=== PATIENT | female | born 1995 | race American Indian/Alaskan Native ===

== ENCOUNTER 2016-12-22 16:48 | Inpatient (IN) | payer MEDICAID ==
[~2016-12-22 16:48] MED LIST: NEO SYNEPHRINE/NS Syringe(OR USE) IV ONE
[2016-12-22] MEDS ORDERED: LACTATED RINGERS 1,000 ML IV ONE (17:18)
[2016-12-22] MEDS ORDERED: SUBLIMAZE IV ONE (17:19)
[2016-12-22] MEDS ORDERED: ePHEDrine SULFATE IV PRN ×2 (17:19→20:08)
[2016-12-22 17:39] LABS: Basophils % (Auto) 0.4 % (0.0-1.8); Eosinophils % (Auto) 1.4 % (0.0-4.3); Hematocrit 39.8 % (30.3-42.9); Hemoglobin 12.9 gm/dl (10.1-14.3); Mean Corpuscular HGB Conc 32 % (30-34); Mean Corpuscular Hemoglobin 27 pg (28-32); Mean Corpuscular Volume 82 fl (79-97); Platelet Count 194 K/mm3 (140-440); Red Blood Count 4.83 M/mm3 (3.65-5.03); Red Cell Distribution Width 13.6 % (13.2-15.2); White Blood Count 13.4 K/mm3 (4.5-11.0)
[2016-12-22] MEDS ORDERED: LACTATED RINGERS 1,000 ML IV SCH ×2 (18:00→21:00)
[2016-12-22] MEDS ORDERED: POLYCILLIN/NS 2 GM/100 ML 2 GM/100 ML BAG IV ONE (18:00)
[2016-12-22 18:32] LABS: Urine Drugs of Abuse Note Disclamer
[2016-12-22 19:13] LABS: HIV-1 Antigen p24 Non React (Non React); HIVR-1/2 Ab Non React (Non React)
[2016-12-22 19:53] LABS: Alanine Aminotransferase 11 units/L (7-56); Lactate Dehydrogenase 185 units/L (91-180)
[2016-12-22 19:58] LABS: Hemoglobin 12.7 gm/dl (10.1-14.3); Mean Corpuscular HGB Conc 32 % (30-34); Mean Corpuscular Hemoglobin 26 pg (28-32); Mean Corpuscular Volume 82 fl (79-97); Platelet Count 199 K/mm3 (140-440); Red Blood Count 4.87 M/mm3 (3.65-5.03); Red Cell Distribution Width 13.6 % (13.2-15.2); White Blood Count 13.8 K/mm3 (4.5-11.0)
[2016-12-22] MEDS ORDERED: POLYCILLIN/NS 1 GM/50 ML 1 GM/50 ML BAG IV SCH (20:00)
[2016-12-22] MEDS ORDERED: NARCAN 2 MG/2 ML IV PRN (20:08)
--- NOTE | 2016-12-22 20:08 | Anesthesia Consultation ---
Anesthesia Consult and Med Hx Date of service: 12/22/16 - Airway Anesthetic Teeth Evaluation: Good ROM Head & Neck: Adequate Mental/Hyoid Distance: Adequate Mallampati Class: Class II Intubation Access Assessment: Probably Good - Pulmonary Exam CTA: Yes - Cardiac Exam Cardiac Exam: RRR - Pre-Operative Health Status ASA Pre-Surgery Classification: ASA2 Proposed Anesthetic Plan: Epidural - Pulmonary Hx Asthma: Yes (last attack 2014; used inhaler) COPD: No Hx Pneumonia: No - Cardiovascular System Hx Hypertension: No - Central Nervous System Hx Seizures: No Hx Psychiatric Problems: Yes (bipolar; ADHD) - Endocrine Hx Renal Disease: No Hx End Stage Renal Disease: No Hx Hypothyroidism: No Hx Hyperthyroidism: No - Hematic Hx Anemia: No Hx Sickle Cell Disease: No - Other Systems Hx Alcohol Use: No
[2016-12-22] MEDS ORDERED: REGLAN ONE (20:57)
[2016-12-22] MEDS ORDERED: PEPCID IV ONE ×2 (20:57→21:00)
[2016-12-22] MEDS ORDERED: BICITRA ONE (20:57)
[2016-12-22] MEDS ORDERED: fentaNYL-BUPIV 2 MCG/ML-0.125% 200 MCG/100 ML BAG EPIDURAL SCH (21:00)
[2016-12-22] MEDS ORDERED: BICITRA PO ONE (21:00)
[2016-12-22] MEDS ORDERED: PITOCin/NS 20 UNIT/1000ML DRIP 20,000 MILLIUNITS/1,000 ML BAG IV ONE (21:00)
[2016-12-22] MEDS ORDERED: REGLAN IV ONE (21:00)
[2016-12-22] MEDS ORDERED: PITOCin/NS 20 UNIT/1000ML DRIP 20 UNITS/1,000 ML BAG IV SCH ×2 (21:00→23:00)
[2016-12-22] MEDS ORDERED: ANCEF/STERILE WATER 2 GM/20 ML 2 GM/20 ML SYRINGE IV NR (21:00)
[2016-12-22] MEDS ORDERED: NACL 0.9% IR ONE (21:15)
[2016-12-22] MEDS ORDERED: WATER FOR IRRIG STERILE IR ONE (21:15)
[2016-12-22] MEDS ORDERED: XYLOCAINE MPF 2% ONE (21:19)
[2016-12-22] MEDS ORDERED: DIPRIVAN 10 MG/ML IV ONE (21:28)
[2016-12-22] MEDS ORDERED: ZEMURON IV ONE (21:43)
[2016-12-22] MEDS ORDERED: VERSED ONE (21:43)
[2016-12-22] MEDS ORDERED: DILAUDID ONE ×2 (21:47→23:00)
[2016-12-22] MEDS ORDERED: ZOFRAN ONE (22:01)
[2016-12-22] MEDS ORDERED: TORADOL ONE (22:28)
[2016-12-22] MEDS ORDERED: NARCAN 0.4 MG/1 ML IV PRN (22:42)
[2016-12-22] MEDS ORDERED: MILK OF MAGNESIA PO PRN (22:42)
[2016-12-22] MEDS ORDERED: TUCKS PAD TP PRN (22:42)
[2016-12-22] MEDS ORDERED: MYLICON PO PRN (22:42)
[2016-12-22] MEDS ORDERED: ANUCORT-HC PR PRN (22:42)
[2016-12-22] MEDS ORDERED: ZOFRAN IV PRN (22:42)
[2016-12-22] MEDS ORDERED: PERCOCET 5/325 PO PRN (22:42)
[2016-12-22] MEDS ORDERED: LANSINOH TP PRN (22:42)
[2016-12-22] MEDS ORDERED: PHENERGAN PR PRN (22:42)
[2016-12-22] MEDS ORDERED: SENOKOT PO PRN (22:42)
[2016-12-22] MEDS ORDERED: TORADOL IV PRN (22:42)
[2016-12-22 22:47] LABS: ISTAT Base Excess -12; ISTAT HCO3 18.7; ISTAT PCO2 71.6 (35-45); ISTAT PH 7.026 (7.35-7.45); ISTAT PO2 19 (80-105); ISTAT SO2 15; ISTAT TCO2 21
[2016-12-22 22:47] LABS: ISTAT Base Excess -7; ISTAT HCO3 20.2; ISTAT PCO2 43.5 (35-45); ISTAT PH 7.275 (7.35-7.45); ISTAT PO2 40 (80-105); ISTAT SO2 68; ISTAT TCO2 21
--- NOTE | 2016-12-22 22:55 | History and Physical Report ---
History of Present Illness Date of examination: 12/22/16 Date of admission: 12/22/16 17:12 Chief complaint: contractions History of present illness: This is a 21 yo at 38 weeks here as a walk in as a patient of [employer]. She states that she went to [place] on previous day and noted to be 1cm. She presented to triage and noted to be 3/100/-1. She was admitted for labor. Past History Past Medical History: no pertinent history, asthma, other (Bipolar and ADHD) Past Surgical History: no surgical history, other (2004 umbilical hernia repair ) CUT OFF SAW OPERATOR PIPE BLANKS History: denies: abnormal PAP smear Family/Genetic History: none Social history: single. denies: smoking, alcohol abuse, prescription drug abuse - Obstetrical History Expected Date of Delivery: 01/01/17 Actual Gestation: 38 Week(s) 4 Day(s) : 1 Para: 0 Hx # Term Pregnancies: 0 Number of Pregnancies: 0 Spontaneous Abortions: 0 Induced : 0 Number of Living Children: 0 Medications and Allergies Allergies Allergy/AdvReac Type Severity Reaction Status Date / Time No Known Allergies Allergy Verified 12/22/16 17:14 Home Medications Medication Instructions Recorded Confirmed Last Taken Type Vit-Fe Fumar-FA [ 1 tab PO QDAY 12/22/16 12/22/16 12/22/16 09: 00 History Vitamin] 1 Active Meds: Active Medications Lactated Ringer's (Lactated Ringers) 1,000 mls @ 125 mls/hr IV DIRECT RO Ampicillin Sodium (Polycillin/Ns 1 Gm/50 Ml) 1 gm in 50 mls @ 100 mls/hr IV Q4H RO PRN Reason: Protocol Last Admin: 12/22/16 20:40 Dose: 100 mls/hr Fentanyl/Bupivacaine/Sodium Chlor (Fentanyl-Bupiv 2 Mcg/Ml-0.125%) 200 mcg in 100 mls @ 12 mls/hr EPIDURAL TITR RO PRN Reason: Protocol Last Admin: 12/22/16 20:39 Dose: 12 mls/hr Review of Systems All systems: negative Genitourinary: contractions - Vital Signs Vital signs: Vital Signs Temp Pulse Resp BP Pulse Ox 97.6 F 78 18 163/98 100 12/22/16 17:21 12/22/16 17:21 12/22/16 17:21 12/22/16 17:21 12/22/16 17:21 Temp Pulse Resp BP Pulse Ox 97.6 F 76 18 143/75 99 12/22/16 17:21 12/22/16 21:11 12/22/16 18:13 12/22/16 21:10 12/22/16 21:11 - Physical Exam Breasts: Positive: deferred Cardiovascular: Regular rate, Normal S1 Lungs: Positive: Clear to auscultation, Normal air movement Abdomen: Positive: normal appearance, soft, normal bowel sounds. Negative: distention, tenderness, guarding Genitourinary (Female): Positive: normal external genitalia, normal perenium Vulva: both: normal Uterus: Positive: normal size Anus/Rectum: Positive: normal perianal skin Extremities: Positive: normal Deep Tendon Reflex Grade: Normal +2 - Obstetrical FHR: category 1 Uterine Contraction Monitor Mode: External Cervical Dilatation: 3 Cervical Effacement Percentage: 100 station: -1 Uterine Contraction Pattern: Regular Uterine Tone Measurement Phase: Contraction Uterine Contraction Intensity: Strong/Firm Results Result Diagrams: 12/22/16 17:30 12/22/16 17:20 Abnormal lab results 12/22/16 12/22/16 12/22/16 Range/Units 17:20 17:20 17:30 WBC 13.8 H 13.4 H (4.5-11.0) K/mm3 MCH 26 L 27 L (28-32) pg [place] # 0.9 H (0.0-0.8) K/mm3 Seg Neutrophils # 9.0 H (1.8-7.7) K/mm3 POC ABG pH (7.35-7.45) POC ABG pCO2 (35-45) POC ABG pO2 (80-105) Creatinine 0.5 L (0.7-1.2) mg/dL Lactate Dehydrogenase 185 H (91-180) units/L 12/22/16 12/22/16 Range/Units 22:40 22:44 WBC (4.5-11.0) K/mm3 MCH (28-32) pg [place] # (0.0-0.8) K/mm3 Seg Neutrophils # (1.8-7.7) K/mm3 POC ABG pH 7.275 L 7.026 L (7.35-7.45) POC ABG pCO2 71.6 H (35-45) POC ABG pO2 40 L 19 L (80-105) Creatinine (0.7-1.2) mg/dL Lactate Dehydrogenase (91-180) units/L All other labs normal. Ultrasound: report reviewed Assessment and Plan A/P IUP 38 weeks, walk in US for complete labs, IVF, pain control and offer epidural attempt to obtain records close monitor expect vaginal delivery
[2016-12-22] MEDS ORDERED: D5LR 1,000 ML IV SCH (23:00)
[2016-12-22] MEDS ORDERED: SODIUM CHLORIDE FLUSH SYRINGE 10 ML IV PRN (23:00)
--- NOTE | 2016-12-22 23:01 | Post Anesthesia Evaluation ---
- Post Anesthesia Evaluation Patient Participated: Yes Airway Patent: Yes Stable Respiratory Function: Yes Nausea/Vomiting: No Temp > 96.8F: Yes Pain Manageable: Yes Adequeate Hydration: Yes Anesthesia Complications: No Block Receding Appropriately: Yes Patient on Ventilator: No
--- NOTE | 2016-12-22 23:11 | Event Note ---
Date: 12/22/16 Late entry I was called by nurse that strip had decreased variability and decels. I poceeded in and evaluated patient. I arom with clear fluid and noted to be 8/100 /-1 FSE applied and note to be in 60s and proceeded for a stat c/sec. We discussed r/b/a of c/sec which included bleeding infection, damage to pelvic and non pelvic organs risk of blood clots, pain and and injury to fetus. Patient agrees to proceed for stat c/sec for NRFHT
--- NOTE | 2016-12-22 23:13 | Procedure Note ---
OB Delivery Note - Delivery Date of Delivery: 12/22/16 Surgeon: SU MONTGOMERY Estimated blood loss: other (600cc) - Section Preop diagnosis: nonreassuring FHR tracing Postop diagnosis: same section procedure: section, primary low transverse Disposition: PACU Complications: none Narrative: see op note - A at 1 minute: 6 at 5 minutes: 9 Infant Gender: Male (weight 6 pounds and 1.9 oz)
--- NOTE | 2016-12-22 23:35 | Operative Report ---
Operative Report Operative Report: DATE OF OPERATION: 12/22/16 PREOPERATIVE DIAGNOSES: 1. Intrauterine gestation at 38 weeks, in active labor 2. NRFHT with minimal variablitity with decels 3. Small for gestational age POSTOPERATIVE DIAGNOSES: 1. Intrauterine gestation at 38 weeks, in active labor 2. NRFHT with minimal variablity and decles 3. Nuchal cord , body cord 4. Asynclytic OPERATION PERFORMED: Primary low transverse section. SURGEON: Leslie Rayo MD ANESTHESIA: Epidural converted to General COMPLICATIONS: None. ESTIMATED BLOOD LOSS: 600 mL. DRAINS: Acuna catheter to the bladder. SPECIMENS TO PATHOLOGY: Cord blood for routine testing. Cord Gas OPERATIVE FINDINGS: A viable male with Apgars of 6 and 9 and birthweight of 6 pounds 1.9 ounces was delivered from a cephalic presentation, face presentation, asynclytic . There was marked caput and molding present on the head. Cord pH was 7.06. The cord contained 3 vessels. There was normal placenta. The amniotic fluid was clear. The uterus, fallopian tubes and ovaries were normal. DESCRIPTION OF OPERATION: The patient was brought to the operating suite in stable condition with epidural anesthesia on board and an indwelling catheter in place in the bladder. The patient was placed supine on the operating room table and rolled to her left side with a wedge. The abdomen was prepped and draped in standard fashion for section. After testing with forceps to assure an adequate anesthetic level, the surgery was commenced. We had counseled the patient extensively regarding the risks of the surgery including but not limited to stroke, embolus, phlebitis, pain, infection, hemorrhage, as well as injury to the and the internal organs such as the bowel, bladder, blood vessels, nerves, kidneys, ureters and pelvic organs. The patient was aware of the postoperative morbidity issues and recovery timeframes. The patient was aware she can form adhesions, which can result in obstruction of loop of bowel or ureter or chronic pain. She was aware that should she have hemorrhage and require blood transfusion, there was a small chance for exposure to hepatitis or HIV disease. With the scalpel, a Pfannenstiel skin incision was made. Dissection was carried down sharply through the subcutaneous tissues and fascia in a transverse plane with the scalpel, electrocautery and curved Jordan scissors.At this time patient begaan to move carlton pull the electrodes off and Dr. Adams had to convert to General. After General after a few minutes I was signaled to continue surgery. The fascia was sharply freed up superiorly and inferiorly from the underlying rectus muscles, which were bluntly and sharply divided. The peritoneum was entered carefully in a clear space with a curved hemostat. The peritoneal incision was then extended vertically with Metzenbaum scissors. A retractor and bladder blade were placed. A bladder flap was created by incising transversely through the peritoneum and vesicouterine fold and then bluntly dissecting the bladder distally. With the scalpel, a low transverse hysterotomy was commenced. The serosa and myometrium were scored with the scalpel. The uterine cavity was actually entered bluntly with a curved hemostat. The uterine incision was then extended laterally with the die equipment operator's fingers. An intrauterine hand was placed and the head of the was brought up out of the pelvis into the uterine incision with assistance of hand from below. Difficult delivery and incision on skin was made and multiple incision to musvcle to release the face and right arm presented and was succesful at delivering baby. With fundal pressure, he was delivered . The nasopharynx and oropharynx were suctioned. The cord was doubly clamped and transected. The was then handed off to the nursery personnel. Apgars were good at 6 and 9. A cord pH was obtained. Further cord blood was collected for routine testing. Intravenous Pitocin and antibiotics were administered. The placenta was manually removed. The uterine cavity was then curetted with a dry sponge and freed of the remaining membranes. The edges of the uterine incision were grasped with Healy clamps. With the massage and the Pitocin , the uterus began to firm up normally. The uterine incision was then closed in 2 layers of 0 Vicryl sutures. The first suture was placed to the endometrium and myometrium. The second suture was placed through the endopelvic fascia and also reincorporated the bladder flap peritoneum. Peritoneal lavage was then performed. The pelvis and gutters were irrigated and suctioned and cleared of all blood and clots and amniotic fluid. The uterine incision was reinspected to assure hemostasis. thissel and surgicell placed with good hemostasis. The uterus, tubes and ovaries were inspected and were normal. Was alerted to heme in Acuna, therefore milk insufflated in acuna with no visualization in operating field.. Once we were satisfied with the hemostasis, attention was turned to closure of the abdominal incision. The peritoneum, muscles and fascia were closed in layers using 0-Vicryl sutures. The subcutaneous tissue was closed with 3-0 plain sutures. The skin was closed with riley. The patient was moved to the recovery room in stable condition with the Acuna catheter draining clear urine. Instruments, sponge and needle counts were reported as correct. Estimated blood loss was 600 mL. There were no complications.
[2016-12-22] MEDS: NORCO 5/325 PO PRN (23:59)
[2016-12-23] MEDS ORDERED: MAGNESIUM SULFATE 4GM/100ML 4 GM/100 ML BAG IV ONE ×2 (00:16→00:22)
[2016-12-23] MEDS ORDERED: MAGNESIUM SULFATE 40GM/1000ML 40 GM/1,000 ML BAG IV SCH (01:00)
[2016-12-23 02:26] LABS: Bacteria,Urine 1+ /HPF (Negative); Bilirubin,Urine NEG (Negative); Blood,Urine LG (Negative); Ketones,Urine NEG (Negative); Leukocyte Esterase,Urine TR (Negative); Mucus,Urine 1+ /HPF; Nitrite,Urine NEG (Negative); RBC,Urine > 182.0 /HPF (0.0-6.0); Urobilinogen,Urine < 2.0 mg/dL (<2.0)
[2016-12-23 03:47] LABS: Basophils % (Auto) 0.3 % (0.0-1.8); Hemoglobin 9.4 gm/dl (10.1-14.3); Mean Corpuscular HGB Conc 31 % (30-34); Mean Corpuscular Hemoglobin 26 pg (28-32); Mean Corpuscular Volume 83 fl (79-97); Platelet Count 213 K/mm3 (140-440); Red Cell Distribution Width 13.8 % (13.2-15.2); White Blood Count 20.1 K/mm3 (4.5-11.0)
[2016-12-23] MEDS ORDERED: LACTATED RINGERS 1,000 ML IV SCH ×2 (04:00)
[2016-12-23] MEDS: ANCEF/NS 1 GM/50 ML 1 GM/50 ML BAG IV SCH ×2 (05:54→14:20)
[2016-12-23] MEDS: TORADOL IV PRN ×2 (07:50→14:20)
--- NOTE | 2016-12-23 08:16 | Progress Note ---
Assessment and Plan A: POD#1 s/p primary section at term, PIH on magnesium sulfate, anemia P: Continue magnesium sulfate x 24 hrs; change pain regimen Subjective - Subjective Date of service: 12/23/16 Principal diagnosis: s/p primary sectiona at term, PIH Interval history: Pt with suboptimal pain control overnight. Patient reports: appetite normal, pain poorly controlled, no voiding normally ( acuna in place ), no flatus, no bowel movement, no ambulating normally (SCDs ) : doing well Objective - Vital Signs Latest vital signs: Vital Signs Temp Pulse Resp BP BP Pulse Ox 12/23/16 06:12 97.7 F 78 20 133/67 12/23/16 04:35 97.7 F 77 20 138/73 12/23/16 02:41 97.3 F L 88 20 136/77 12/23/16 02:04 18 12/23/16 01:15 77 16 137/77 98 12/23/16 01:00 72 15 147/81 97 12/23/16 00:45 72 17 133/84 97 12/23/16 00:30 77 12 140/80 98 12/23/16 00:15 77 12 144/89 99 12/23/16 00:00 76 12 141/85 99 12/22/16 23:59 18 12/22/16 23:45 68 17 148/87 98 12/22/16 23:30 74 17 135/85 98 12/22/16 23:16 88 16 153/84 98 12/22/16 23:10 61 16 138/80 97 12/22/16 22:58 97.8 F 114 H 20 165/98 98 12/22/16 21:11 76 99 12/22/16 21:10 78 143/75 12/22/16 21:06 89 99 12/22/16 21:01 92 H 131/84 100 12/22/16 20:56 90 100 12/22/16 20:51 76 100 12/22/16 20:49 71 139/84 12/22/16 20:46 75 100 12/22/16 20:45 80 166/77 12/22/16 20:41 87 100 12/22/16 20:39 79 129/93 12/22/16 20:36 82 98 12/22/16 20:31 84 99 12/22/16 20:30 94 H 163/111 12/22/16 20:26 78 100 12/22/16 20:21 77 100 12/22/16 20:18 184 H 139/63 12/22/16 20:16 70 99 12/22/16 20:11 58 L 99 12/22/16 20:07 88 166/67 12/22/16 20:06 83 88 12/22/16 20:00 76 100 12/22/16 19:59 63 138/78 12/22/16 19:57 64 139/79 12/22/16 19:55 78 99 12/22/16 19:23 80 L 12/22/16 19:20 79 L 12/22/16 19:17 66 94 12/22/16 19:15 84 99 12/22/16 19:10 66 141/85 99 12/22/16 19:09 83 L 12/22/16 19:04 58 L 89 12/22/16 18:59 62 98 12/22/16 18:54 59 L 98 12/22/16 18:49 54 L 97 12/22/16 18:44 70 98 12/22/16 18:39 67 98 12/22/16 18:34 97 H 100 12/22/16 18:29 62 99 12/22/16 18:24 59 L 98 12/22/16 18:19 59 L 98 12/22/16 18:14 64 99 12/22/16 18:13 18 12/22/16 18:09 61 99 12/22/16 17:58 83 L 12/22/16 17:47 68 87 12/22/16 17:43 58 L 96 12/22/16 17:38 63 99 12/22/16 17:33 76 99 12/22/16 17:28 68 97 12/22/16 17:21 97.6 F 78 18 163/98 100 Intake and Output 12/22/16 12/23/16 12/23/16 22:59 06:59 14:59 Output Total 350 400 Balance -350 -400 Output: Urine 350 400 Uretheral (Acuna) 350 400 Other: Weight 86.636 kg Estimated Blood Loss 600 - Exam Breasts: Present: deferred Cardiovascular: Present: Regular rate Lungs: Present: Clear to auscultation Abdomen: Present: soft, distention (moderate ), abnormal bowel sounds ( hypoactive ) Uterus: Present: fundal height at umbilicus Extremities: Present: normal Incision: Present: dressed - Labs Labs: Abnormal lab results 12/22/16 12/22/16 12/22/16 Range/Units 17:20 17:20 17:30 WBC 13.8 H 13.4 H (4.5-11.0) K/mm3 RBC (3.65-5.03) M/mm3 Hgb (10.1-14.3) gm/dl Hct (30.3-42.9) % MCH 26 L 27 L (28-32) pg Lymph % (Auto) (13.4-35.0) % [place] # 0.9 H (0.0-0.8) K/mm3 Seg Neutrophils % (40.0-70.0) % Seg Neutrophils # 9.0 H (1.8-7.7) K/mm3 POC ABG pH (7.35-7.45) POC ABG pCO2 (35-45) POC ABG pO2 (80-105) Creatinine 0.5 L (0.7-1.2) mg/dL Magnesium (1.7-2.3) mg/dL Lactate Dehydrogenase 185 H (91-180) units/L Urine WBC (Auto) (0.0-6.0) /HPF 12/22/16 12/22/16 12/23/16 Range/Units 22:40 22:44 02:11 WBC (4.5-11.0) K/mm3 RBC (3.65-5.03) M/mm3 Hgb (10.1-14.3) gm/dl Hct (30.3-42.9) % MCH (28-32) pg Lymph % (Auto) (13.4-35.0) % [place] # (0.0-0.8) K/mm3 Seg Neutrophils % (40.0-70.0) % Seg Neutrophils # (1.8-7.7) K/mm3 POC ABG pH 7.275 L 7.026 L (7.35-7.45) POC ABG pCO2 71.6 H (35-45) POC ABG pO2 40 L 19 L (80-105) Creatinine (0.7-1.2) mg/dL Magnesium (1.7-2.3) mg/dL Lactate Dehydrogenase (91-180) units/L Urine WBC (Auto) 8.0 H (0.0-6.0) /HPF 12/23/16 12/23/16 12/23/16 Range/Units 02:49 02:49 05:29 WBC 20.1 H (4.5-11.0) K/mm3 RBC 3.60 L (3.65-5.03) M/mm3 Hgb 9.4 L D (10.1-14.3) gm/dl Hct 30.0 L D (30.3-42.9) % MCH 26 L (28-32) pg Lymph % (Auto) 10.9 L (13.4-35.0) % [place] # 1.0 H (0.0-0.8) K/mm3 Seg Neutrophils % 83.6 H (40.0-70.0) % Seg Neutrophils # 16.8 H (1.8-7.7) K/mm3 POC ABG pH (7.35-7.45) POC ABG pCO2 (35-45) POC ABG pO2 (80-105) Creatinine (0.7-1.2) mg/dL Magnesium 3.50 H 4.20 H (1.7-2.3) mg/dL Lactate Dehydrogenase (91-180) units/L Urine WBC (Auto) (0.0-6.0) /HPF
[2016-12-23 11:21] LABS: Hematocrit 25.6 % (30.3-42.9); Hemoglobin 8.4 gm/dl (10.1-14.3)
--- NOTE | 2016-12-23 14:58 | Progress Note ---
Subjective Date of service: 12/23/16 Principal diagnosis: s/p primary sectiona at term, PIH Interval history: 1st POD after Patient is in the bed, comfortable. Pain is well controlled with pain meds. Has not ambulated yet due to Mg2SO4 infusion. No residual neurological deficit. No anesthesia complications Objective - Constitutional Vitals: Vital Signs - 12hr 12/23/16 12/23/16 12/23/16 04:35 06:12 09:06 Temperature 97.7 F 97.7 F 98.3 F Pulse Rate 77 78 Respiratory 20 20 22 Rate Blood Pressure 138/73 133/67 139/81 [Right] O2 Sat by Pulse 99 Oximetry 12/23/16 12/23/16 12/23/16 10:30 12:00 14:10 Temperature 98.3 F 98.3 F 98.5 F Pulse Rate 90 88 88 Respiratory 20 18 20 Rate Blood Pressure 138/68 136/70 142/76 [Right] O2 Sat by Pulse Oximetry - Labs CBC & Chem 7: 12/23/16 11:00 12/22/16 17:20 Labs: Abnormal lab results 12/22/16 12/22/16 12/22/16 Range/Units 17:20 17:20 17:30 WBC 13.8 H 13.4 H (4.5-11.0) K/mm3 RBC (3.65-5.03) M/mm3 Hgb (10.1-14.3) gm/dl Hct (30.3-42.9) % MCH 26 L 27 L (28-32) pg Lymph % (Auto) (13.4-35.0) % [place] # 0.9 H (0.0-0.8) K/mm3 Seg Neutrophils % (40.0-70.0) % Seg Neutrophils # 9.0 H (1.8-7.7) K/mm3 POC ABG pH (7.35-7.45) POC ABG pCO2 (35-45) POC ABG pO2 (80-105) Creatinine 0.5 L (0.7-1.2) mg/dL Magnesium (1.7-2.3) mg/dL Lactate Dehydrogenase 185 H (91-180) units/L Urine WBC (Auto) (0.0-6.0) /HPF 12/22/16 12/22/16 12/23/16 Range/Units 22:40 22:44 02:11 WBC (4.5-11.0) K/mm3 RBC (3.65-5.03) M/mm3 Hgb (10.1-14.3) gm/dl Hct (30.3-42.9) % MCH (28-32) pg Lymph % (Auto) (13.4-35.0) % [place] # (0.0-0.8) K/mm3 Seg Neutrophils % (40.0-70.0) % Seg Neutrophils # (1.8-7.7) K/mm3 POC ABG pH 7.275 L 7.026 L (7.35-7.45) POC ABG pCO2 71.6 H (35-45) POC ABG pO2 40 L 19 L (80-105) Creatinine (0.7-1.2) mg/dL Magnesium (1.7-2.3) mg/dL Lactate Dehydrogenase (91-180) units/L Urine WBC (Auto) 8.0 H (0.0-6.0) /HPF 12/23/16 12/23/16 12/23/16 Range/Units 02:49 02:49 05:29 WBC 20.1 H (4.5-11.0) K/mm3 RBC 3.60 L (3.65-5.03) M/mm3 Hgb 9.4 L D (10.1-14.3) gm/dl Hct 30.0 L D (30.3-42.9) % MCH 26 L (28-32) pg Lymph % (Auto) 10.9 L (13.4-35.0) % [place] # 1.0 H (0.0-0.8) K/mm3 Seg Neutrophils % 83.6 H (40.0-70.0) % Seg Neutrophils # 16.8 H (1.8-7.7) K/mm3 POC ABG pH (7.35-7.45) POC ABG pCO2 (35-45) POC ABG pO2 (80-105) Creatinine (0.7-1.2) mg/dL Magnesium 3.50 H 4.20 H (1.7-2.3) mg/dL Lactate Dehydrogenase (91-180) units/L Urine WBC (Auto) (0.0-6.0) /HPF 12/23/16 12/23/16 Range/Units 11:00 11:00 WBC (4.5-11.0) K/mm3 RBC (3.65-5.03) M/mm3 Hgb 8.4 L (10.1-14.3) gm/dl Hct 25.6 L (30.3-42.9) % MCH (28-32) pg Lymph % (Auto) (13.4-35.0) % [place] # (0.0-0.8) K/mm3 Seg Neutrophils % (40.0-70.0) % Seg Neutrophils # (1.8-7.7) K/mm3 POC ABG pH (7.35-7.45) POC ABG pCO2 (35-45) POC ABG pO2 (80-105) Creatinine (0.7-1.2) mg/dL Magnesium 4.80 H (1.7-2.3) mg/dL Lactate Dehydrogenase (91-180) units/L Urine WBC (Auto) (0.0-6.0) /HPF
[2016-12-23] MEDS: PERCOCET 5/325 PO PRN (18:15)
[2016-12-23] MEDS ORDERED: M-M-R II VACCINE SUB-Q ONE (22:45)
[2016-12-24] MEDS: PERCOCET 5/325 PO PRN ×5 (00:42→19:41)
[2016-12-24] MEDS: NORCO 5/325 PO PRN (06:00)
[2016-12-24] MEDS ORDERED: BOOSTRIX IM ONE (06:00)
--- NOTE | 2016-12-24 08:19 | Progress Note ---
Assessment and Plan - Patient Problems (1) Insufficient care Current Visit: Yes Status: Acute Qualifiers: Trimester: T Plan to address problem: Patient doing well The patient strongly desires to be discharged home today (2) delivery delivered Current Visit: Yes Status: Acute Subjective - Subjective Date of service: 12/24/16 Principal diagnosis: s/p primary sectiona at term, PIH Interval history: The patient is currently without any significant complaints. She reports that she feels hungry. She denies any nausea or vomiting. She has tolerated a clear diet without complication. The patient has been able to void since removal of [place]. Patient reports: appetite normal, voiding normally, pain well controlled [place]: doing well Objective - Vital Signs Latest vital signs: Vital Signs Temp Pulse Resp BP Pulse Ox 12/24/16 05:08 98.9 F 83 18 129/89 12/24/16 00:43 98.7 F 83 18 140/88 12/23/16 20:47 98.5 F 77 20 127/76 12/23/16 18:15 98.4 F 78 20 136/68 12/23/16 16:16 98.3 F 80 20 130/77 100 12/23/16 14:10 98.5 F 88 20 142/76 12/23/16 12:00 98.3 F 88 18 136/70 12/23/16 10:30 98.3 F 90 20 138/68 12/23/16 09:06 98.3 F 22 139/81 99 Intake and Output 12/23/16 12/24/16 12/24/16 22:59 06:59 14:59 Intake Total 600 Output Total 900 1100 Balance -300 -1100 Intake: Oral 360 Intake, Free Water 240 Output: Urine 900 1100 Indwelling Catheter 900 600 Void 500 Other: Total, Intake Amount 240 Total, Output Amount 100 500 Voiding Method Indwelling Catheter # Voids Void 1 - Exam Abdomen: Present: normal appearance, soft Uterus: Present: normal, firm Incision: Present: dressed - Labs Labs: Abnormal lab results 12/23/16 12/23/16 12/23/16 Range/Units 11:00 11:00 18:46 Hgb 8.4 L (10.1-14.3) gm/dl Hct 25.6 L (30.3-42.9) % Magnesium 4.80 H 4.60 H (1.7-2.3) mg/dL 12/23/16 Range/Units 22:48 Hgb (10.1-14.3) gm/dl Hct (30.3-42.9) % Magnesium 3.70 H (1.7-2.3) mg/dL
--- NOTE | 2016-12-24 08:21 | Discharge Summary ---
Providers - Providers Date of Admission: 12/22/16 17:12 Date of discharge: 12/24/16 Attending physician: LESLIE RAYO MD Primary care physician: FIRMWARE ENGINEER Hospitalization Reason for admission: active labor Delivery: Procedure: section, primary low transverse Incision: normal Discharge diagnosis: IUP at term delivered [place] baby: male Hospital course: The patient was admitted in active labor from triage. The patient reports receiving care at [facility]. The patient's intrapartum course was complicated by nonreassuring heart rate tracing and the patient was taken for primary delivery. Please see operative note for details of surgery. Her postoperative course was significant for elevated blood pressures with the patient underwent magnesium therapy with subsequent improvement in her blood pressures. Condition at discharge: Good Disposition: DC-01 TO HOME OR SELFCARE - Discharge Diagnoses (1) Insufficient care Status: Acute Qualifiers: Trimester: T (2) delivery delivered Status: Acute Plan - Discharge Medications Prescriptions: Ferrous Sulfate [Feosol 325 MG tab] 325 mg PO BID #60 tablet Ibuprofen [Motrin] 800 mg PO Q8HR PRN #30 tablet PRN Reason: Pain oxyCODONE /ACETAMINOPHEN [Percocet 5/325] 1 tab PO Q6HR PRN #30 tablet PRN Reason: Pain - Provider Discharge Summary Activity: no sex for 6 weeks, no heavy lifting 4 weeks, no strenuous exercise Diet: routine Instructions: routine Additional instructions: [] Smoking cessation referral if applicable(refer to patient education folder for contact #) [] Refer to [facility]'s [facility] Booklet Call your doctor immediately for: * Fever > 100.5 * Heavy vaginal bleeding ( >1 pad per hour) * Severe persistent headache * Shortness of breath * Reddened, hot, painful area to leg or breast * Drainage or odor from incision. * Keep incision clean and dry at all times and follow doctor's instructions regarding bathing/showering Follow-up with Dr. Leslie Rayo in 2 weeks for blood pressure check and incision check - Follow up plan
--- NOTE | 2016-12-24 08:36 | Ultrasound Report ---
Complete OB ultrasound: transabdominal abdominal imaging. evaluation. Gestation: Pereyra Position: Cephalic KATIE = 10.9 cm Placenta: Fundal Placental Grade: 2 Heart Rate: 131 BPM Cervical length: X cm (Normal > 3 cm) ANATOMY VISUALIZED: Stomach Bladder Diaphragm 4 Chamber Heart Heart The following are not demonstrated due to maternal body habitus or lie: BPD: 8.7 cm = 35 w 0 d HC: 32.0 cm = 36 w 1 d AC: 31.9 cm = 35 w 6 d FL: 6.5 cm = 33 w 4 d HC/AC Ratio: 1.0 Cephalic Index: 79.5 Estimated Weight: 2614 grams LMP: 03/27/16 Clinical age = 38 w 4 d EDC: 01/01/17 US Gest. Age = 35 w 1 d EDC: 01/25/17 Impression Limited anatomic evaluation due to maturity. No abnormality identified.
[2016-12-24] MEDS: FEOSOL PO SCH (10:40)
[2016-12-24] MEDS: PRENATAL VITAMIN PO SCH (10:40)
--- NOTE | 2016-12-24 12:28 | Query-Anemia ---
Dear _Dr. Rayo Date:_12/24/16 Picture Copyist/CDS:Robert Phone#:[phone] Exercise your independent professional judgment when responding to this query. Questions asked do not imply a particular answer is desired or expected. We greatly appreciate your clarification on this issue. Clinical Documentation States: 21 year old female was admitted on 12/22/16. Operative Report(Dr. Rayo on12/22/16) states" POSTOPERATIVE DIAGNOSES: 1. Intrauterine gestation at 38 weeks, in active labor 2. NRFHT with minimal variablity and decles 3. Nuchal cord , body cord 4. Asynclytic ESTIMATED BLOOD LOSS: 600 mL." Clinical Findings Show: 12/22/16 12/23/16 Hgb 12.7 8.4 Etiology: [ ] Anemia due to acute blood loss [ ] Anemia due to chronic blood loss [ ] Anemia secondary to ESRD [ ] Anemia secondary to neoplastic disease [ ] Iron deficiency anemia due to malabsorption [ ] GI Bleed from: [ ] Anemia of chronic disease ,Other: [ ] Precipitous Drop in Hemoglobin [ ] Precipitous Drop in Hematocrit [ ] Other: [ ] Unable to determine [ ] Comment/Explanation: Present on Admission: [ ] Yes (Y) [ ] Clinically undeterminable (W) [ ] No (N) Please also document response in your Progress Notes and/or Discharge Summary and indicate if the condition was present on admission. MTDD
[2016-12-25] MEDS: PERCOCET 5/325 PO PRN ×4 (00:05→14:15)
[2016-12-25] MEDS: PRENATAL VITAMIN PO SCH (13:07)
[2016-12-25] MEDS: FEOSOL PO SCH (13:07)
[2016-12-25] MEDS ORDERED: CITRATE OF MAGNESIA PO ONE (16:00)
[2016-12-25] MEDS ORDERED: TRANSDERM-SCOP TD ONE (16:28)
[2016-12-25] MEDS ORDERED: ZOFRAN ODT PO PRN (16:29)
[2016-12-25] MEDS ORDERED: DULCOLAX PR PRN (16:30)
[2016-12-25] MEDS ORDERED: LACTATED RINGERS 1,000 ML IV SCH (19:00)
--- NOTE | 2016-12-25 21:50 | Event Note ---
Date: 12/25/16 Late entry. Pt with three episodes of vomiting and hypoactive bowel sounds per RN. Hold discharge, reestablish IV access, clear liquid, Zofran PRN. Continue to monitor clinical status.
[2016-12-26] MEDS ORDERED: APRESOLINE IV PRN (00:55)
[2016-12-26] MEDS: TYLENOL PO PRN ×2 (06:24→17:11)
--- NOTE | 2016-12-26 08:51 | Progress Note ---
Assessment and Plan A: POD#4 s/p primary section, ileus- resolving P: Clear liquid diet this morning, advance diet at tolerated. Monitor clinical status. Subjective - Subjective Date of service: 12/26/16 Principal diagnosis: s/p primary sectiona at term, PIH Interval history: Pt without emesis after IV access reestablished and pt given IV antiemetics. Passing flatus and had bowel movement this morning. Patient reports: voiding normally, pain well controlled, flatus, bowel movement , no nauseated (presently ) : doing well Objective - Vital Signs Latest vital signs: Vital Signs Temp Pulse Resp BP 12/26/16 06:24 18 12/26/16 04:30 98.9 F 100 H 20 142/91 12/26/16 01:38 98.2 F 95 H 20 142/87 12/26/16 00:00 98.5 F 89 20 162/95 12/25/16 17:00 99.2 F 109 H 18 153/95 12/25/16 14:15 20 12/25/16 12:18 98.8 F 98 H 18 134/90 12/25/16 08:59 99.1 F 101 H 18 133/86 Intake and Output 12/25/16 12/26/16 12/26/16 22:59 06:59 14:59 Intake Total 240 240 Balance 240 240 Intake: Oral 240 240 Other: Total, Intake Amount 120 240 Voiding Method Toilet # Voids Void 1 1 - Exam Breasts: Present: deferred Cardiovascular: Present: Regular rate Lungs: Present: Clear to auscultation Abdomen: Present: soft, distention (moderate ), abnormal bowel sounds ( hypoactive ) Uterus: Present: fundal height at umbilicus Extremities: Present: normal Incision: Present: intact (with riley)
[2016-12-26] MEDS: FEOSOL PO SCH (11:06)
[2016-12-26] MEDS: PRENATAL VITAMIN PO SCH (11:06)
[2016-12-26 16:46] VITALS: BP 116/92
== END 2016-12-26 18:10 | disposition home or self-care (01) | DRG 765 ==
LOC: TRG 16:48 → LD 17:12 → OB 12-23 02:00
PROVIDERS: ADMIT Obstetrics & Gynecology; ATTEND Obstetrics & Gynecology
PROC: 10D00Z1 Extraction of Products of Conception, Low, Open Approach (ICD-10-PCS; principal; 2016-12-22)
PROC: 3E0234Z Introduction of Serum, Toxoid and Vaccine into Muscle, Percutaneous Approach (ICD-10-PCS; 2016-12-23)
DX: O76 Abnormality in fetal heart rate and rhythm complicating labor and delivery (principal); O36.5930 Maternal care for other known or suspected poor fetal growth, third trimester, not applicable or unspecified; O75.0 Maternal distress during labor and delivery; Z3A.38 38 weeks gestation of pregnancy; Z37.0 Single live birth; Z23 Encounter for immunization; O99.52 Diseases of the respiratory system complicating childbirth; O99.344 Other mental disorders complicating childbirth; O69.81X0 Labor and delivery complicated by cord around neck, without compression, not applicable or unspecified
CPT/HCPCS: 36415; 76805; 80307; 81001; 82565; 82803; 83615; 83735; 84450; 84460; 84550; 85014; 85018; 85025; 85027; 86706; 86762; 86803; 86850; 86900; 86901; 87806; J0290; J0690; J1170; J1885; J2250; J2370; J2405; J2590; J2704; J2765; J3010; J3475; J7120; Q0162